=== PATIENT | female | born 1990 | race Caucasian/White ===

== ENCOUNTER 2016-12-14 14:59 | Inpatient (IN) | payer OTHER ==
[2016-12-16] MEDS ORDERED: TERBUTALINE 1 MG/ML VIAL SQ PRN (06:13)
[2016-12-16] MEDS ORDERED: LIDOCAINE 1% (PF) 10 MG/ML (30 ML SDV) SQ PRN (06:13)
[2016-12-16] MEDS ORDERED: METHYLERGONOVINE 0.2 MG/ML 1 ML AMP IM PRN (06:13)
[2016-12-16] MEDS ORDERED: CARBOPROST TROMETHAMINE 250 MCG/ML 1 ML AMP IM PRN (06:13)
[2016-12-16] MEDS ORDERED: OXYTOCIN 10 UNIT/ML 1 ML VIAL IM PRN (06:13)
[2016-12-16] MEDS ORDERED: OXYTOCIN 20 UNITS/1000 ML NS 1,000 ML IV SCH (06:15)
[2016-12-16 06:19] VITALS: BMI 36.2
[2016-12-16] MEDS: LACTATED RINGERS 1,000 ML IV SCH ×2 (06:21→11:26)
[2016-12-16 06:34] LABS: Anisocytosis Slight; Basophils % (A) 0 %; CH 27.7; CHCM 33.5; Eosinophils # (A) 0.1 k/uL (0-0.7); Eosinophils % (A) 1 %; HCT 33.4 % (34.0-46.0); HDW 3.43; Luc # (Auto) 0.15; Luc % (Auto) 2; Lymphocytes # (A) 2.3 k/uL (1.0-4.8); Lymphocytes % (A) 25 %; MCH 27.3 pg (25.0-35.0); MCHC 32.9 g/dL (31.0-37.0); MCV 83.1 fL (80.0-100.0); Mean Platelet Volume 11.1; Monocytes # (A) 0.4 k/uL (0-1.0); Monocytes % (A) 4 %; Neutrophils # (A) 6.4 k/uL (1.3-7.7); Neutrophils % (A) 68 %; Poikilocytosis Slight; RBC 4.02 m/uL (3.80-5.40); RDW 17.5 % (11.5-15.5); WBC 9.3 k/uL (3.8-10.6); WBC (Perox) 9.98
--- NOTE | 2016-12-16 07:22 | P.HPOB ---
History of Present Illness H&P Date: 12/16/16 This is a 26-year-old white female 3 para 1011 EDC 12/14/2016 at 40-2/7 weeks' gestation. Patient presents today for induction of labor with favorable multiparous cervix, postdates. Fetus is been active throughout the . She is having spontaneous contractions approximately every 5 minutes apart of moderate intensity. She denies vaginal bleeding or fluid leakage. Fetus has been active throughout the . Past medical history is essentially unremarkable. Past surgical history is negative. Current medications vitamins daily. ALLERGIES include Biaxin, erythromycin, Keflex, all penicillins, and sulfa products to patient reports a life-threatening reaction. Family history is unremarkable. Reproductive history significant for female vaginal delivery 6 lbs. 10 oz. in 2013. She had missed AB in 2014 not requiring D&C. Social history patient is a previous smoker but quit in 2016. She is , denies alcohol or drug use. Obstetric history is significant for negative group B strep cultures. Blood type is O-, rubella status immune, VDRL testing, urine screen, hepatitis B surface antigen, HIV testing all negative. One-hour Glucola 121. On exam this is a pleasant white female, 5 foot 5 inches, 218 pounds, vital signs are stable and she is afebrile. The general physical exam is within normal limits. The chest is clear in all sarabia. Extremities reveal no edema. Cervix is 4 cm dilated, 70-80% effaced, -2 station, vertex presentation. Artificial amniorrhexis reveals clear fluid. heart rate is in the 140s with frequent accelerations, consistent with reactive NST. Impression: 40-2/7 weeks intrauterine , in early spontaneous labor, but admitted for induction for postdates with favorable cervix. Plan: Close maternal and surveillance. Oxytocin per hospital protocol. Anticipate normal spontaneous vaginal delivery. Review of Systems Negative except as in HPI. Past Medical History Past Medical History: Asthma History of Any Multi-Drug Resistant Organisms: None Reported Past Surgical History: No Surgical Hx Reported Past Anesthesia/Blood Transfusion Reactions: No Reported Reaction Past Psychological History: No Psychological Hx Reported Smoking Status: Never smoker Past Alcohol Use History: Occasional Past Drug Use History: None Reported - Past Family History Mother Family Medical History: No Reported History Medications and Allergies Home Medications Medication Instructions Recorded Confirmed Type Pnv No.95/Ferrous Fum/Folic AC 1 tab PO DAILY 12/16/16 12/16/16 History [ Multivitamin Tablet] Allergies Allergy/AdvReac Type Severity Reaction Status Date / Time cephalexin monohydrate Allergy Unknown Verified 12/16/16 06:12 [From Keflex] Childhood clarithromycin [From Biaxin] Allergy Unknown Verified 12/16/16 06:12 Childhood erythromycin base Allergy Unknown Verified 12/16/16 06:12 Childhood magnesium sulfate Allergy Unknown Verified 12/16/16 06:12 [From Suprep] Childhood Penicillins Allergy Unknown Verified 12/16/16 06:12 Childhood potassium sulfate Allergy Unknown Verified 12/16/16 06:12 [From Suprep] Childhood sodium sulfate [From Suprep] Allergy Unknown Verified 12/16/16 06:12 Childhood Sulfa (Sulfonamide Allergy Unknown Verified 12/16/16 06:12 Antibiotics) Childhood Exam - Vital Signs Vital signs: Vital Signs Temp Pulse Resp BP Pulse Ox 12/16/16 06:11 96.8 F L 98 18 134/77 98 Intake and Output 12/15/16 12/16/16 12/16/16 22:59 06:59 14:59 Other: Weight 98.883 kg Please see dictation under HPI. Results Result Diagrams: 12/16/16 06:15 Abnormal Lab Results - Last 24 Hours (Table) 12/16/16 Range/Units 06:15 Hgb 11.0 L (11.4-16.0) gm/dL Hct 33.4 L (34.0-46.0) % RDW 17.5 H (11.5-15.5) % Plt Count 137 L (150-450) k/uL Assessment and Plan Plan: Close maternal and surveillance. Oxytocin per hospital protocol. Anticipate normal spontaneous vaginal delivery. Time with Patient: Less than 30
[2016-12-16] MEDS ORDERED: fentaNYL (PF) 50 MCG/ML 5 ML AMP ONE (11:05)
[2016-12-16] MEDS ORDERED: SODIUM CHLORIDE 0.9% 100 ML BAG ONE (11:05)
[2016-12-16] MEDS ORDERED: BUPIVACAINE (PF) 0.25% 30 ML VIAL ONE (11:05)
[2016-12-16] MEDS ORDERED: BUPIVACAINE (PF) 0.25% 25 ML, fentaNYL (PF) 200 MCG in SODIUM CHLORIDE 0.9% 71 ML EPIDURAL ONE (11:27)
[2016-12-16 13:38] VITALS: RESP 16
[2016-12-16] MEDS ORDERED: diphenhydrAMINE 25 MG CAP PO PRN (13:51)
[2016-12-16] MEDS ORDERED: diphenhydrAMINE ELIXIR 25 MG/10 ML CUP PO PRN (13:51)
[2016-12-16] MEDS ORDERED: SIMETHICONE 80 MG CHEWABLE PO PRN (13:51)
[2016-12-16] MEDS ORDERED: HYDROCORTISONE 2.5% RECTAL CREAM 30 GM TUBE RECTAL PRN (13:51)
[2016-12-16] MEDS ORDERED: IBUPROFEN 600 MG TAB PO PRN (13:51)
[2016-12-16] MEDS ORDERED: ACETAMINOPHEN TAB 325 MG TAB PO PRN (13:51)
[2016-12-16] MEDS ORDERED: diphenhydrAMINE 50 MG CAP PO PRN (13:51)
[2016-12-16] MEDS ORDERED: WITCH HAZEL 1 EACH MED..PAD TOPICAL PRN (13:51)
[2016-12-16] MEDS ORDERED: diphenhydrAMINE 50 MG/ML 1 ML VIAL IVP PRN ×2 (13:51)
[2016-12-16] MEDS ORDERED: ZOLPIDEM 5 MG TAB PO PRN (13:51)
[2016-12-16] MEDS ORDERED: Acetaminophen-Codeine 300-30mg TAB PO PRN (13:51)
[2016-12-16] MEDS ORDERED: BENZOCAINE/MENTHOL SPRAY 1 GM/SPRAY AEROSOL TOPICAL PRN (13:51)
[2016-12-16] MEDS ORDERED: LANOLIN CREAM 5 GM TUBE TOPICAL PRN (13:51)
--- NOTE | 2016-12-16 13:51 | P.PROBDLV ---
Vaginal Delivery Note - . Vaginal Delivery Note: This is a 26-year-old white female 3 para 1011 EDC 12/14/2016 at 40-2/7 weeks' gestation. Patient presented for induction for favorable multiparous cervix, slightly postdates. is essentially unremarkable, blood type is O-, group B strep cultures are negative. Please see my dictated history and physical for details. Patient was admitted, artificial amniorrhexis revealed clear fluid. Oxytocin was started and titrated per hospital protocol. She became uncomfortable and requested an epidural, this was placed without difficulty per the anesthesia staff. Patient became completely dilated at 1258 hrs. Perineal body was prepped and draped in usual sterile fashion. heart tones were reassuring throughout the first and second stages of labor. With maternal effort excellent, the infant's head delivered occiput anterior and he restituted accordingly. There was a nuchal cord 1 that was reduced over the perineal body. The left or anterior shoulder was gently and easily delivered from underneath the pubic symphysis at which time the oropharynx, nasopharynx and external nares were bulb suctioned on the perineal body. Patient was officially delivered of a liveborn male infant at 1317 hrs. Umbilical cord was doubly clamped and ligated, he was handed to waiting nurses for evaluation where scores of 9 and 9 at one and 5 minutes respectively are given. The placenta delivered spontaneously, it was inspected and noted to be intact with trivascular cord at 1319 hrs. At this time the perineal body was redraped. Inspection of the cervix, vagina, perineum and periurethral areas revealed 1 small midline first-degree perineal laceration. This was repaired in the usual fashion with a single figure-of- eight suture of Vicryl. Fundus is firm and in the midline, symmetric and 18 week size upon completion of delivery. All sponge needle and enhancement counts are correct. Patient and her family are allowed to begin the bonding experience in the LDR. The are requesting circumcision further son.
[2016-12-16] MEDS: SENNOSIDES-DOCUSATE SODIUM 1 EACH TAB PO SCH (23:06)
--- NOTE | 2016-12-17 07:07 | P.DS ---
Providers Date of admission: 12/16/16 06:05 Expected date of discharge: 12/17/16 Attending physician: Rocio Horner Primary care physician: Stated None Hospital Course: This is a 26-year-old white female 3 para 1011 EDC 12/14/2016 at 40-2/7 weeks' gestation. Patient presented for induction with favorable multiparous cervix, slightly postdates. was remarkable only for Rh- blood type, could be strep cultures are negative, please see my dictated history and physical for details. Patient was admitted, artificial amniorrhexis was performed. Oxytocin was started and titrated per hospital protocol. Epidural was placed per her request. She went on to swiftly deliver a liveborn male with scores of 9 and 9 at one and 5 minutes respectively. There was a nuchal cord 1 that was easily reduced. weighed 3600 g or 7 lbs. 15 oz. There was one small stitch placed for shallow first-degree laceration, estimated blood loss 400 mL, please see my dictated note for details. This morning the patient is doing well. She is voiding, and bleeding and passing flatus without difficulty. Vital signs are stable and she is afebrile. Fundus is firm and in the midline, symmetric and 18 week size. Extremities are negative for edema. Breast-feeding is going well. [employer] infant has been circumcised. Patient will be discharged home later this morning. She is in very good condition for discharge home. I have briefly reviewed with her the options for contraception, and we will discuss this further in the office. She will continue taking her vitamin daily. I have given her prescription for breast pump. She will call the office with any fevers shakes or chills, foul smelling or copious lochia, with the passage of large blood clots, with any pain not alleviated by [id number] Advil or Aleve, or indeed with any concerns. She will continue taking her vitamin daily. will follow-up as instructed. Plan - Discharge Summary New Discharge Prescriptions: No Action Pnv No.95/Ferrous Fum/Folic AC [ Multivitamin Tablet] 1 tab PO DAILY Discharge Medication List Pnv No.95/Ferrous Fum/Folic AC [ Multivitamin Tablet] 1 tab PO DAILY [History] Follow up Appointment(s)/Referral(s): Rocio Horner MD [STAFF PHYSICIAN] - 6 Weeks Discharge Disposition: HOME SELF-CARE
[2016-12-17] MEDS: SENNOSIDES-DOCUSATE SODIUM 1 EACH TAB PO SCH (08:32)
[2016-12-17 08:34] VITALS: BP 114/85; PULSE 87; TEMP 98.2
[2016-12-17] MEDS ORDERED: Rhogam IMMUNE GLOBULIN 1,500 UNIT/1 ML IM ONE (09:44)
== END 2016-12-17 14:38 | disposition home or self-care (01) | DRG 775 ==
LOC: 4FBP 12-16 06:05
PROVIDERS: ADMIT Obstetrics & Gynecology; ATTEND Obstetrics & Gynecology
PROC: 10E0XZZ Delivery of Products of Conception, External Approach (ICD-10-PCS; principal; 2016-12-16)
PROC: 0HQ9XZZ Repair Perineum Skin, External Approach (ICD-10-PCS; 2016-12-16)
DX: O48.0 Post-term pregnancy (principal); J45.909 Unspecified asthma, uncomplicated; Z37.0 Single live birth; O99.52 Diseases of the respiratory system complicating childbirth; O69.81X0 Labor and delivery complicated by cord around neck, without compression, not applicable or unspecified; O70.0 First degree perineal laceration during delivery; Z3A.40 40 weeks gestation of pregnancy; Z87.891 Personal history of nicotine dependence; Z88.0 Allergy status to penicillin; Z88.1 Allergy status to other antibiotic agents; Z88.2 Allergy status to sulfonamides
CPT/HCPCS: 85025; 85461; 88307